=== PATIENT | male | born 1985 | race Caucasian/White ===

== ENCOUNTER 2017-03-01 12:43 | Emergency (ER) | payer OTHER ==
[~2017-03-01] VITALS: Ht 165.1 cm; Wt 61.4 kg
[2017-03-01 13:04] VITALS: TEMP 36.6; Ht 165.1 cm; Wt 61.4 kg
[2017-03-01] MEDS ORDERED: SODIUM CHLORIDE 0.9% 1000ML 1,000 ML IV STA (13:10)
[2017-03-01] MEDS ORDERED: HYDROmorphone INJ 1 MG/ML SYR IV STA (13:10)
[2017-03-01] MEDS ORDERED: DIPHTHERIA/TETANUS/PERTUSSIS 0.5 ML SYR/VIAL IM. ONE (13:15)
--- NOTE | 2017-03-01 13:18 | EMERGENCY ROOM VISIT NOTE ---
History Report prepared by [place]: Angel Gay Under the Supervision of: Dr. Nikhil Bustos M.D. First contact with patient: 13:05 Chief Complaint: LACERATION/CUT (SUT/DERMABOND) Stated Complaint: LACERATION Nursing Triage Summary: Pt brought ALS, was cutting carpet with utility knife and cut R forearm, there is a deep, approximately 4 inch long laceration to R forearm. Pressure dressing applied by EMS using IGOR wrap, bleeding controlled, pt reports good sensation except for in his R thumb which he reports is starting to go numb. Hand is red in color. EMS dressing removed and saline soaked guaze applied and wrapped with coban, arm elevated above the heart, color in R hand improving, still reports numbness in R thumb. History of Present Illness The patient is a 32 year old male who presents to the Emergency Room for evaluation of laceration to right forearm. Cutting carpet when knife cut right forearm. Heavy bleeding stopped with pressure. Associated with pain, weakness/ numbness in thumb and some lightheadedness. Unknown last tetanus update. No other injuries. States accidental and this was not purposeful in any way. Denies bleeding disorder, liver issues, or any blood thinner use. 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 6 systems reviewed. Social History Smoking Status: Current Every Day Smoker Current/Historical Medications Scheduled Cephalexin Monohydrate (Keflex), 500 MG PO QID Allergies Coded Allergies: No Known Allergies (Unverified , 03/01/17) Physical Exam Vital Signs Date Time Temp Pulse Resp B/P (MAP) Pulse Ox O2 Delivery O2 Flow Rate FiO2 03/01/17 15:22 76 20 140/92 98 03/01/17 14:00 76 18 133/93 98 Room Air 03/01/17 13:04 36.6 53 20 131/81 97 Room Air Physical Exam GENERAL: Patient is well appearing and in moderate distress. EXTREMITIES: No cyanosis, no edema. 4 cm laceration over distal right forearm radial aspect. Deep to ostium. Through tendon/muscle bellies. Mild bleeding. Radial artery intact without evidence of laceration to it and good distal pulses. Distal sensation other than part of tip of thumb intact which feels numb. Unable to extend thumb without significant pain and is definitively weak though still has some strength NEUROLOGIC: Alert and oriented, no acute motor or sensory deficits, no focal weakness, cranial nerves grossly intact. SKIN: No rash, no jaundice, no diaphoresis. Medical Decision & Procedures ER Provider Diagnostic Interpretation: Radiology results and stated below per my review and radiologist interpretation: R FOREARM 2 VIEWS ROUTINE CLINICAL HISTORY: Laceration trauma. Laceration. COMPARISON: None. DISCUSSION: Soft tissue laceration/disruption overlying the distal radius and ulna. No well-defined acute bony abnormality. Cortical margins appear intact. IMPRESSION: Distal forearm soft tissue laceration. No acute bony abnormality. The above report was generated using voice recognition software. It may contain grammatical, syntax or spelling errors. Electronically signed by: Travis Bowie M.D. 03/01/2017 1:43 PM Dictated Date/Time: 03/01/2017 1:42 PM Laboratory Results 03/01/17 13:36 Red Blood Count 4.47, Mean Corpuscular Volume 91.7, Mean Corpuscular Hemoglobin 31.1, Mean Corpuscular Hemoglobin Concent 33.9, Mean Platelet Volume 10.6, Neutrophils (%) (Auto) 48.6, Lymphocytes (%) (Auto) 46.0, Monocytes (%) (Auto) 4.6, Eosinophils (%) (Auto) 0.2, Basophils (%) (Auto) 0.4, Neutrophils # (Auto) 2.66, Lymphocytes # (Auto) 2.51, Monocytes # (Auto) 0.25, Eosinophils # (Auto) 0.01, Basophils # (Auto) 0.02 Test 03/01/17 13:36 White Blood Count 5.46 K/uL (4.8-10.8) Red Blood Count 4.47 M/uL (4.7-6.1) Hemoglobin 13.9 g/dL (14.0-18.0) Hematocrit 41.0 % (42-52) Mean Corpuscular Volume 91.7 fL (80-100) Mean Corpuscular Hemoglobin 31.1 pg (25-34) Mean Corpuscular Hemoglobin Concent 33.9 g/dl (32-36) Platelet Count 191 K/uL (130-400) Mean Platelet Volume 10.6 fL (7.4-10.4) Neutrophils (%) (Auto) 48.6 % Lymphocytes (%) (Auto) 46.0 % Monocytes (%) (Auto) 4.6 % Eosinophils (%) (Auto) 0.2 % Basophils (%) (Auto) 0.4 % Neutrophils # (Auto) 2.66 K/uL (1.4-6.5) Lymphocytes # (Auto) 2.51 K/uL (1.2-3.4) Monocytes # (Auto) 0.25 K/uL (0.11-0.59) Eosinophils # (Auto) 0.01 K/uL (0-0.5) Basophils # (Auto) 0.02 K/uL (0-0.2) RDW Standard Deviation 43.7 fL (36.4-46.3) RDW Coefficient of Variation 13.0 % (11.5-14.5) Immature Granulocyte % (Auto) 0.2 % Immature Granulocyte # (Auto) 0.01 K/uL (0.00-0.02) Laboratory results as reviewed by me. Medications Administered Medications (Trade) Dose Ordered Sig/David Route Start Time Stop Time Status Last Admin Dose Admin Hydromorphone HCl (Dilaudid Inj) 1 mg NOW STAT IV 03/01/17 13:10 03/01/17 13:11 DC 03/01/17 13:16 1 MG Sodium Chloride 1,000 ml @ 999 mls/hr Q1H1M STAT IV 03/01/17 13:10 03/01/17 14:10 DC 03/01/17 13:17 999 MLS/HR Diphtheria/ Pertussis/Tetanus Vacc (Adacel Inj) 0.5 ml ONCE ONCE IM. 03/01/17 13:15 03/01/17 13:16 DC 03/01/17 13:18 0.5 ML Cefazolin Sodium 2000 mg/Dextrose 60 ml @ 100 mls/hr NOW STAT IV 03/01/17 14:12 03/01/17 14:47 DC 03/01/17 14:29 100 MLS/HR Oxycodone HCl (Roxicodone Immediate Rel 5MG Home Pack) 1 homepack UD ONCE PO 03/01/17 15:00 03/01/17 15:01 DC 03/01/17 15:00 1 HOMEPACK ED Course 1305: The patient was evaluated in room B11. A complete history and physical exam was performed. 1338: I ketan Conner PAC and she is suturing the laceration. 1354: I checked on the patient and he has more color in his face. 1356: I spoke with Dr. Mccabe who agrees with closure and will see the patient on Saturday. He agrees with splitting and antibiotics 1450: I spoke with the patient and he is doing much better. He would like to go home. He has a line haul driver. 1500: Reevaluated the patient. Discussed results and discharge instructions: He verbalized understanding and agreement. The patient is ready for discharge. Medical Decision Differential: Simple Laceration, Complex Laceration, Imbedded Foreign Body, Contamination/Infection Risk, Neurovascular Compromise, Tendon Injury, Compartment Syndrome, as well as Tetanus Status, amongst other pathologies entertained. 32 yr old male with laceration right distal forearm which has taken out tendon and likely some nerve. Sutured with good closure by Ubaldo GILL. Discussed with ortho who will see on Saturday in [place]. Patient with mild anemia though non to compare. HR and BP are both good. Looks well and feeling much better. Start Keflex. Will give limited to go Oxy IR as I do not wish to risk further addiction issues. Patient comfortable with this plan. Reviewed symptoms requiring RTED. Placed in thumb spica splint. [place] Drug Monitoring Program Search Results: patient reviewed within database (regular Suboxone prescription ) Medication Reconcilliation Current Medication List: was personally reviewed by me Blood Pressure Screening Patient's blood pressure: Elevated blood pressure Blood pressure disposition: Elevated BP felt to be situational Consults Time Called: 1350 Consulting Physician: Dr. Mccabe Returned Call: [phone] Mccabe who agrees with closure and will see the patient on Saturday. He agrees with splitting and antibiotics Additional Consults: Time Called: 1336 Consulted Physician: TAMERA Contreras Returned Call: [phone] Additional Comments: I paged Iwona PHILIP and she is suturing the laceration. Impression Primary Impression: Laceration of upper extremity with complication Scribe Attestation The scribe's documentation has been prepared under my direction and personally reviewed by me in its entirety. I confirm that the note above accurately reflects all work, treatment, procedures, and medical decision making performed by me. Departure Information Dispostion Home / Self-Care Prescriptions Cephalexin Monohydrate (Keflex) 500 Mg Cap 500 MG PO QID for 10 Days, #40 CAP Prov: Nikhil Bustos M.D. 03/01/17 Referrals Nimesh Lozano MD Patient Instructions My [facility] Additional Instructions Keep arm elevated to level of heart when possible to decrease swelling. Return if severe pain, blue fingers, bleeding, or other concerns. Take antibiotics as prescribed. Follow up with Ortho on Saturday as discussed. Call their office Saturday to verify time. You have received a narcotic pain medication. These medications may cause drowsiness and should not be used with other sedative medications. Do not drive , drink alcohol, perform dangerous activities, nor make important decisions after taking these medications. assisted use or inappropriate use may lead to addiction.
[2017-03-01] MEDS ORDERED: LIDO/EPINEPHRINE/SOD BICARB 20 ML VIAL INFIL ONE (13:23)
--- NOTE | 2017-03-01 13:44 | DIAGNOSTIC IMAGING REPORT ---
R FOREARM 2 VIEWS ROUTINE CLINICAL HISTORY: Laceration trauma. Laceration. COMPARISON: None. DISCUSSION: Soft tissue laceration/disruption overlying the distal radius and ulna. No well-defined acute bony abnormality. Cortical margins appear intact. IMPRESSION: Distal forearm soft tissue laceration. No acute bony abnormality. The above report was generated using voice recognition software. It may contain grammatical, syntax or spelling errors. Electronically signed by: Travis Bowie M.D. 03/01/2017 1:43 PM Dictated Date/Time: 03/01/2017 1:42 PM
[2017-03-01 14:08] LABS: BASO % 0.4 %; BASO ABS # 0.02 K/uL (0-0.2); EOS % 0.2 %; EOS ABS # 0.01 K/uL (0-0.5); HEMOGLOBIN 13.9 g/dL (14.0-18.0); IG# 0.01 K/uL (0.00-0.02); LYMPH ABS # 2.51 K/uL (1.2-3.4); MEAN CELL VOLUME 91.7 fL (80-100); MEAN CORPUSCULAR HEMOGLOBIN 31.1 pg (25-34); MEAN CORPUSCULAR HGB CONC 33.9 g/dl (32-36); MEAN PLATELET VOLUME 10.6 fL (7.4-10.4); MONO % 4.6 %; MONO ABS # 0.25 K/uL (0.11-0.59); NEUT % 48.6 %; NEUT ABS # 2.66 K/uL (1.4-6.5); PLATELET COUNT 191 K/uL (130-400); RED CELL DISTRIBUTION WIDTH SD 43.7 fL (36.4-46.3); WHITE BLOOD COUNT 5.46 K/uL (4.8-10.8)
[2017-03-01] MEDS ORDERED: CEFAZOLIN IV 2,000 MG in DEXTROSE 5% 50ML 50 ML IV STA (14:12)
--- NOTE | 2017-03-01 14:12 | EMERGENCY ROOM VISIT NOTE ---
ED Visit Note Verbal consent was obtained to perform the procedure. Using sterile technique the wound was cleaned with Betadine. The area was sterilely draped. 6 ml of 1 % buffered lidocaine was used to anesthetize the laceration. Once the patient was anesthetized, the wound was copiously irrigated under pressure with sterile saline. The wound was explored. The periosteum of the distal radius was visible at the base of the wound. There was also a severed tendon present. No active arterial bleeding noted. The laceration was repaired using 3 subcutaneous 5-0 Vicryl sutures. 7 simple interrupted 5-0 nylon sutures were used to close the epidermis with the wound edges being well approximated. The patient tolerated the procedure well. Hemostasis was achieved. The area was covered with bacitracin. He was also given a compression bandage.
[2017-03-01] MEDS ORDERED: CEPH500C PO (14:50)
[2017-03-01] MEDS ORDERED: OXYCODONE IR HOME PACK PO ONE (15:00)
[2017-03-01 15:22] VITALS: BP 140/92; PULSE 76; O2SAT 98
== END 2017-03-01 15:24 | disposition home or self-care (01) ==
LOC: C.EDB 12:46
DX: S51.811A Laceration without foreign body of right forearm, initial encounter (principal); W26.0XXA Contact with knife, initial encounter; Y92.9 Unspecified place or not applicable; F17.210 Nicotine dependence, cigarettes, uncomplicated